=== PATIENT | male | born 1955 | race Caucasian/White ===

== ENCOUNTER 2016-08-13 10:59 | Day surgery (SDC) | payer BC ==
[~2016-08-13 10:59] MED LIST: LIDOCAINE W/ SODIUM BICARB 0.5 ML SYR ONE; Lactated Ringers 1,000 ML PRIMARY IV ONE; ceFAZolin Inj 2gm (Premix) 50 ML IV ONE
[2016-08-13] MEDS ORDERED: LIDOCAINE 2% 20 MG/ML - 20 ML VIAL ONE (11:47)
[2016-08-13] MEDS ORDERED: KETAMINE 100 MG/1 ML - 5 ML ONE (11:48)
[2016-08-13] MEDS ORDERED: MIDAZOLAM 5 MG/1 ML ONE (11:48)
[2016-08-13] MEDS ORDERED: BUPIVACAINE 0.25% W/ EPI - 10 ML VIAL ONE (11:48)
[2016-08-13] MEDS ORDERED: fentaNYL Inj 250 MCG/5 ML VIAL ONE (11:48)
[2016-08-13] MEDS ORDERED: LIDOCAINE MPF 2% - 5 ML (20 MG/1 ML) ONE (11:49)
[2016-08-13] MEDS ORDERED: BUPivacaine Liposome/PF (Exparel) Inj 20ml vial INFIL ONE (12:23)
[2016-08-13] MEDS ORDERED: Sodium Chloride 0.9% vial 20 ML ONE (12:25)
[2016-08-13] MEDS ORDERED: Lactated Ringers 1,000 ML PRIMARY IV ONE (12:35)
[2016-08-13 12:48] VITALS: RESP 18
[2016-08-13] MEDS ORDERED: KETOROLAC 30 MG/1 ML VIAL ONE (12:50)
[2016-08-13] MEDS ORDERED: DEXAMETHASONE PF 10 MG/1 ML VIAL ONE (12:50)
--- NOTE | 2016-08-13 13:16 | GEN.OPNOTE ---
Operative Note Surgery Date: 08/13/16 Preoperative Diagnosis: Bilateral inguinal hernias without obstruction Postoperative Diagnosis: Bilateral inguinal hernias without obstruction or gangrene Procedure: Bilateral inguinal herniorrhaphy with Prolene mesh Surgeon: Venkatesh Sexton MD Anesthesia Provider: Lois Bowie CRNA Anesthesia Type: General Estimated Blood Loss (mL): 5 Fluids: 2 g of Ancef. LR please see anesthesia notes in EMR Pathology: None sent Indications: Patient has freely reducible bilateral inguinal hernias Findings: Direct inguinal hernia bilateral Complications: None Operative Summary: Patient is brought in operative room placed supine position. Given general trach anesthesia. Prepped draped sterile fashion. Timeout performed per protocols. I did she is working on the left side mated incision in the ilioinguinal region. Hemostased electrocautery dissection down to the subcutaneous tissue left cautery. Aponeurosis of external oblique was identified small incision is made into it. Grasped hemostats. Using Metzenbaums scissors extended the incision through the external ring and above the internal ring. Ilioinguinal nerve was out of harm's way during the dissection. This rheumatic cord was dissected off the floor the ilioinguinal can now. Patient had a large direct hernia. Piece of Prolene mesh was cut to appropriate size and shape. He will the mesh to reconstruct the internal ring. The inferior edge of the mesh was shown to to the shelving edge of the ilioinguinal ligament. A portion of the mesh around the spermatic cord at the internal ring crease directly internal ring. The medial aspect of the mesh was sewn to the rectus sheath using 0 Prolene suture. Superior aspect the mesh was sewn to the aponeurosis of the transversalis fascia. Spermatic cord was placed back in anatomical position. External oblique fascia was closed with 2-0 Vicryl continuous running suture. I used Exoprel for postoperative pain control. Took 20 mL of Exoprel and diluted out to a total of 40 mL. I then infiltrated 20 mL into the subcutaneous tissue. Closed the subcutaneous tissue 2-0 Vicryl simple sutures. Skin reapproximated using 4-0 Monocryl continuous running septic restitch. Steri-Strips are applied. I then went to the patient's right side made a mirror incision. I then did a similar dissection through the subcutaneous tissue and the aponeurosis of the external oblique was opened in a similar fashion. Spermatic cord was dissected off the floor of the ilioinguinal canal. Patient had a direct hernia defect. Mesh was cut to appropriate state size and shape and sewn in in a similar fashion to the left. The wound was closed in a similar fashion. 20 mL extra was used for postoperative pain control. Counts were correct.
[2016-08-13] MEDS ORDERED: MORPHINE SULFATE 2 MG/1 ML IVP PRN (13:17)
[2016-08-13] MEDS ORDERED: NORMAL SALINE 10 ML SYRINGE FLUSH IVP PRN ×2 (13:17→13:21)
[2016-08-13] MEDS ORDERED: HYDROcodone-APAP 7.5 MG-325 MG TABLET PO PRN (13:17)
[2016-08-13] MEDS ORDERED: ONDANSETRON 4 MG/2 ML VIAL IVP PRN (13:17)
[2016-08-13] MEDS ORDERED: ATROPINE SULFATE 0.4 MG/1 ML VIAL IVP PRN (13:21)
[2016-08-13] MEDS ORDERED: Ondansetron ODT Tab 8 MG TAB PO PRN (13:21)
[2016-08-13] MEDS ORDERED: Acetaminophen 1000mg Inj 1,000 MG in Premix 1 BAG IV ONE (13:21)
[2016-08-13] MEDS ORDERED: fentaNYL Inj 100 MCG/2 ML VIAL IVP PRN (13:21)
[2016-08-13] MEDS ORDERED: HYDROmorphone 2 MG/1 ML IVP PRN (13:21)
[2016-08-13] MEDS ORDERED: Acetaminophen 1000mg Inj 100 ML IV ONE (13:29)
[2016-08-13] MEDS ORDERED: Lactated Ringers 1,000 ML PRIMARY IV SCH ×2 (13:30)
[2016-08-13] MEDS ORDERED: oxyCODONE IR Tab 5 MG TAB PO ONE (13:52)
[2016-08-13 16:53] VITALS: TEMP 97.2
== END 2016-08-13 15:25 | disposition home or self-care (01) ==
LOC: SDSC 10:59
PROVIDERS: ATTEND Surgery
DX: K40.21 Bilateral inguinal hernia, without obstruction or gangrene, recurrent (principal)
CPT/HCPCS: 49505; A4216; C9290; J0131; J0690; J1885; J2704; J3010; J1100; J2001; J2250; J7120